=== PATIENT | female | born 1990 | race Hispanic/Latino ===

== ENCOUNTER 2020-07-01 23:52 | Emergency (ER) | payer OTHER, SELFPAY ==
[2020-07-02 01:25] LABS: Bilirubin Neg (Negative); Blood, Urine 50 (Negative); Clarity Clear (Clear); Glucose, Urine (Dipstick) Normal (Negative); Ketone, Urine Negative (Negative); Leukocyte Negative (Negative); Nitrite Negative (Negative); Protein, Urine (Dipstick) Negative (Neg-Trace); Specific Gravity, Urine 1.005 (1.002-1.036); Urobilinogen Normal mg/dL (Less than 2)
[2020-07-02 01:26] LABS: Hemoglobin 13.3 g/dL (12.0-15.5); Mean Corpuscular HGB CONC 33.6 g/dL (32.0-36.0); Mean Corpuscular Hemoglobin 31.1 pg (27.0-33.0); Mean Corpuscular Volume 92.7 fl (81.6-98.3); Mean Platelet Volume 12.4 fl (7.4-10.4); Platelet Count 172 10x3/uL (150-450); Red Blood Cell (RBC) Count 4.27 10x6/uL (3.90-5.03); White Blood Cell (WBC) Count 8.8 10x3/uL (3.5-10.5)
[2020-07-02 01:39] LABS: ALT (SGPT) 55 U/L (8-55); AST (SGOT) 34 U/L (5-34); Albumin 4.2 g/dL (3.5-5.0); Alkaline Phosphatase 54 U/L (40-110); Anion Gap 14 mmol/L (10-20); BUN (Urea Nitrogen) 6 mg/dL (7.0-18.7); Bilirubin, Total 0.3 mg/dL (0.2-1.2); Calc. Creatinine Clearance 0 mL/min (70-130); Calcium 8.9 mg/dL (7.8-10.44); Carbon Dioxide 22 mmol/L (22-29); Chloride 104 mmol/L (98-107); Globulin 3.2 g/dL (2.4-3.5); Glucose 104 mg/dL (70-105); Potassium 3.8 mmol/L (3.5-5.1); Protein, Total 7.4 g/dL (6.0-8.3); Sodium 136 mmol/L (136-145)
[2020-07-02 01:42] LABS: Bacteria/HPF Rare-Few HPF (None Seen); RBC/HPF 0-3 HPF (0-3); WBC/HPF 0-3 HPF (0-3)
[2020-07-02 01:58] LABS: Lymphocytes 6 % (21-51); Reactive Lymphocytes 2 % (0-10)
[2020-07-02 02:00] LABS: Band 12 % (5-11); Neutrophil 66 % (42-75)
[2020-07-02 02:01] LABS: Monocytes 14 % (0-10)
[2020-07-02 02:02] LABS: Large Platelets SLIGHT; Platelet Morphology Comment Appears Adequate
[2020-07-02 02:03] LABS: MDiff Complete? YES; Manual Diff?? YES; RBC Morphology Normal
[2020-07-02 03:20] LABS: SARS-CoV-2 NAA Rapid Test Not Detected (NotDetected)
== END 2020-07-02 03:58 | disposition home or self-care (01) ==
LOC: CSHERS 23:52
DX: O99.891 Other specified diseases and conditions complicating pregnancy (principal); R10.9 Unspecified abdominal pain; Z3A.01 Less than 8 weeks gestation of pregnancy
CPT/HCPCS: 0240U; 36415; 76856; 80053; 81003; 81015; 84702; 85025; 86900; 86901

== ENCOUNTER 2022-01-28 18:15 | Outpatient (CLI) | payer BC ==
[2022-01-28 19:02] LABS: BHCG - Serum Negative (NEGATIVE); Pregs Control Background? CLEAR/WHITE (CLR/WHITE); Pregs Control Bar Appear? YES (CONTROL BAR)
== END 2022-01-28 18:16 | disposition home or self-care (01) ==
LOC: CSHLAB 18:15
PROVIDERS: ATTEND Surgery
DX: Z01.812 Encounter for preprocedural laboratory examination (principal); K80.20 Calculus of gallbladder without cholecystitis without obstruction
CPT/HCPCS: 84703

== ENCOUNTER 2022-01-31 09:49 | Day surgery (SDC) | payer BC ==
[2022-01-29 14:22] VITALS: BMI 34.4
[2022-01-31] MEDS ORDERED: Fentanyl 100 MCG/2 ML VIAL ONE ×2 (12:01→13:42)
[2022-01-31] MEDS ORDERED: PROPOFOL 20 ML ONE (12:01)
[2022-01-31] MEDS ORDERED: Rocuronium Bromide 10 MG/ML (10ML VIAL) ONE (12:04)
[2022-01-31] MEDS ORDERED: EPINEPHrine 1 MG/ML AMP ONE (12:06)
[2022-01-31] MEDS ORDERED: Bupivacaine PF 0.5% 30 ML VIAL ONE (12:06)
[2022-01-31] MEDS ORDERED: Lidocaine 2% 6 ML SYR ONE (12:09)
[2022-01-31] MEDS ORDERED: CEFAZOLIN 2 GM VIAL ONE (12:13)
[2022-01-31] MEDS ORDERED: Midazolam HCl 2 mg/2 ml Vial ONE (12:14)
[2022-01-31] MEDS ORDERED: Dexamethasone 4 mg/ml Vial ONE (12:38)
[2022-01-31] MEDS ORDERED: Ondansetron PF 4 MG/2 ML Vial ONE (13:02)
[2022-01-31] MEDS ORDERED: Metoclopramide HCl 10 MG/2 ML VIAL ONE (13:02)
[2022-01-31] MEDS ORDERED: diphenhydrAMINE 50 MG/ML VIAL ONE (13:02)
[2022-01-31] MEDS ORDERED: Glycopyrrolate 0.2 MG/ML 5 ML SYRINGE ONE (13:07)
[2022-01-31] MEDS ORDERED: HYDROcodone/Acetaminophen 5/325 mg Tablet PO PRN (13:23)
[2022-01-31] MEDS ORDERED: Ketorolac Tromethamine 30 MG/ML VIAL ONE (13:28)
== END 2022-01-31 15:15 | disposition home or self-care (01) ==
LOC: CSHSDC 09:49
PROVIDERS: ATTEND Surgery
PROC: 0FT44ZZ Resection of Gallbladder, Percutaneous Endoscopic Approach (ICD-10-PCS; principal; 2022-01-31)
DX: K80.10 Calculus of gallbladder with chronic cholecystitis without obstruction (principal); E66.9 Obesity, unspecified; Z68.35 Body mass index [BMI] 35.0-35.9, adult; Z79.899 Other long term (current) drug therapy
CPT/HCPCS: 88304; C1776; J0171; J1100; J1200; J1885; J2250; J2405; J2704; J2765; J3010; S0020